=== PATIENT | male | born 1990 | race African-American/Black ===

== ENCOUNTER 2019-04-11 05:57 | Emergency (ER) | payer BC ==
[~2019-04-11] VITALS: Ht 182.9 cm; Wt 65.8 kg
[2019-04-11 06:10] VITALS: BP 137/76
[2019-04-11 06:28] LABS: BILIRUBIN,URINE NEGATIVE (NEG); CLARITY,URINE CLEAR; COLOR,URINE YELLOW; NITRITE,URINE NEGATIVE (NEG); PH,URINE 6.5; PROTEIN,URINE NEGATIVE (NEG-TRACE)
[2019-04-11 07:01] LABS: BACTERIA,URINE 0 /HPF (0-FEW); RBC,URINE 0 /HPF (0-2)
[2019-04-11] MEDS ORDERED: cefTRIAXone IM 250 MG VIAL IM ONE (07:30)
[2019-04-11] MEDS ORDERED: AZITHROMYCIN 250 MG TABLET. PO ONE (07:30)
[2019-04-11] MEDS ORDERED: CIPR500T94 PO (07:43)
--- NOTE | 2019-04-11 07:43 | PHYS DOC ---
Past Medical History Past Medical History: No Pertinent History Past Surgical History: Other Additional Past Surgical Histo: HERNIA REPAIR Alcohol Use: Rarely Drug Use: Marijuana Adult General Chief Complaint Chief Complaint: BACK PAIN - NO INJURY HPI HPI Patient is a 29 year old male who presented to ER today for evaluation of low back pain that been experiencing for the last few years. Patient said the reason he checked in today because he is here with his girlfriend who was seen for urinary tract infection so by convenient he wanted to check in to be seen as well. Patient also says sometimes HE HAD penile discharge but not today. He denies any abdominal pain, no nausea vomiting. Patient denies any bowel incontinence or bladder incontinence. Patient denies any previous back injury. Review of Systems Review of Systems Constitutional: Denies fever or chills [] Eyes: Denies change in visual acuity, redness, or eye pain [] HENT: Denies nasal congestion or sore throat [] Respiratory: Denies cough or shortness of breath [] Cardiovascular: No additional information not addressed in HPI [] GI: Denies abdominal pain, nausea, vomiting, bloody stools or diarrhea [] : Denies dysuria or hematuria [] Musculoskeletal: Positive for back pain, NO joint pain [] Integument: Denies rash or skin lesions [] Neurologic: Denies headache, focal weakness or sensory changes [] Endocrine: Denies polyuria or polydipsia [] All other systems were reviewed and found to be within normal limits, except as documented in this note. Current Medications Current Medications Current Medications Medications (Trade) Dose Ordered Sig/Kourtney Start Time Stop Time Status Last Admin Dose Admin Azithromycin (Zithromax) 1,000 mg 1X ONCE 04/11/19 07:30 04/11/19 07:31 DC 04/11/19 07:26 1,000 MG Ceftriaxone Sodium (Rocephin Im) 250 mg 1X ONCE 04/11/19 07:30 04/11/19 07:31 DC 04/11/19 07:27 250 MG Allergies Allergies Allergies Coded Allergies Type Severity Reaction Last Updated Verified No Known Drug Allergies 04/11/19 No Physical Exam Physical Exam Constitutional: Well developed, well nourished, no acute distress, non-toxic appearance. [] HENT: Normocephalic, atraumatic, bilateral external ears normal, oropharynx moist, no oral exudates, nose normal. [] Eyes: PERRLA, EOMI, conjunctiva normal, no discharge. [] Neck: Normal range of motion, no tenderness, supple, no stridor. [] Cardiovascular:Heart rate regular rhythm, no murmur [] Lungs & Thorax: Bilateral breath sounds clear to auscultation [] Abdomen: Bowel sounds normal, soft, no tenderness, no masses, no pulsatile masses. [] Skin: Warm, dry, no erythema, no rash. [] Back: No tenderness, no CVA tenderness. NO MIDLINE VERTEBRAL TENDERNESS TO PALPATION. Extremities: No tenderness, no cyanosis, no clubbing, ROM intact, no edema. [] Neurologic: Alert and oriented X 3, normal motor function, normal sensory function, no focal deficits noted. [] Psychologic: Affect normal, judgement normal, mood normal. [] Current Patient Data Vital Signs Vital Signs Date Time Temp Pulse Resp B/P (MAP) Pulse Ox O2 Delivery O2 Flow Rate FiO2 04/11/19 06:10 98.6 88 14 137/76 (96) 99 Room Air 98.6 Lab Values Laboratory Tests Test 04/11/19 06:10 Urine Collection Type Unknown Urine Color Yellow Urine Clarity Clear Urine pH 6.5 Urine Specific Samson >=1.030 Urine Protein Negative mg/dL (NEG-TRACE) Urine Glucose (UA) Negative mg/dL (NEG) Urine Ketones (Stick) Negative mg/dL (NEG) Urine Blood Negative (NEG) Urine Nitrite Negative (NEG) Urine Bilirubin Negative (NEG) Urine Urobilinogen Dipstick 1.0 mg/dL (0.2 mg/dL) Urine Leukocyte Esterase Small (NEG) Urine RBC 0 /HPF (0-2) Urine WBC 5-10 /HPF (0-4) Urine Bacteria 0 /HPF (0-FEW) Urine Mucus Mod /LPF EKG EKG [] Radiology/Procedures Radiology/Procedures [][facility] [address] [place] [address] IMAGING REPORT Signed PATIENT: LILY JONES ACCOUNT: [id number] : 1990 LOCATION: ER AGE: 29 SEX: M EXAM STATUS: DEP ER ORD. PHYSICIAN: BRYCE ROBERTSON DO REASON: lower back pain for a year, worse the last few day, no injury PROCEDURE: LUMBAR SPINE MIN 4V Lumbar spine, 5 views, 04/11/2019: HISTORY: Low back pain There are tiny ribs at T12. Utilizing this numbering system L5 is largely sacralized. No recent fracture or subluxation is evident. The intervertebral disc spaces are well-maintained. There is no evidence of spondylolysis. Mild deformity of the lower sacrum near its junction with the coccyx is compatible with old trauma. The paraspinous soft tissues are unremarkable. IMPRESSION: No acute lumbar spine abnormality is detected. Electronically signed by: Jose Mendoza MD (04/11/2019 7:38 AM) [facility] DICTATED and SIGNED BY: JOSE MENDOZA MD DATE: 04/11/19 0738 Course & Med Decision Making Course & Med Decision Making Pertinent Labs and Imaging studies reviewed. (See chart for details) HE was given 250 mg of Rocephin IM, 1 g of ZITHROMAX by mouth for suspect STD. Dragon Disclaimer Dragon Disclaimer This electronic medical record was generated, in whole or in part, using a voice recognition dictation system. Departure Departure Impression: Primary Impression: Back pain Additional Impression: UTI (urinary tract infection) Disposition: HOME, SELF-CARE Condition: STABLE Referrals: NO PCP (PCP) Patient Instructions: Back Pain, Adult, Urinary Tract Infection Scripts Ciprofloxacin Hcl (CIPRO) 500 Mg Tablet 1 TAB PO BID, #14 TAB Prov: BRYCE ROBERTSON DO 04/11/19 Problem Qualifiers BRYCE ROBERTSON DO April 11, 2019 07:43
--- NOTE | 2019-04-11 09:50 | RAD ---
Lumbar spine, 5 views, 04/11/2019: HISTORY: Low back pain There are tiny ribs at T12. Utilizing this numbering system L5 is largely sacralized. No recent fracture or subluxation is evident. The intervertebral disc spaces are well-maintained. There is no evidence of spondylolysis. Mild deformity of the lower sacrum near its junction with the coccyx is compatible with old trauma. The paraspinous soft tissues are unremarkable. IMPRESSION: No acute lumbar spine abnormality is detected. Electronically signed by: Jose Mendoza MD (04/11/2019 7:38 AM) [facility]
== END 2019-04-11 08:02 | disposition home or self-care (01) ==
LOC: ER 05:57
DX: N39.0 Urinary tract infection, site not specified (principal); M54.5 Low back pain
CPT/HCPCS: 72110; 81001; 87086; 96372; 99285; J0696; Q0144; 99284

== ENCOUNTER 2020-08-04 11:27 | Emergency (ER) | payer BC ==
[~2020-08-04] VITALS: Ht 180.3 cm; Wt 70.0 kg
[~2020-08-04 11:27] MED LIST: CIPR500T94 PO
[2020-08-04 11:32] VITALS: BP 152/65
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
--- NOTE | 2020-08-04 12:02 | RAD ---
EXAM: Right forearm, 2 views. HISTORY: Blunt trauma. COMPARISON: None. FINDINGS: 2 views of the right forearm are obtained. There is a slightly comminuted nondisplaced fracture of the distal ulnar diaphysis. There is overlying soft tissue swelling. No additional fracture is seen. IMPRESSION: Slightly comminuted nondisplaced fracture of the distal ulnar diaphysis. Electronically signed by: Kiara Sharpe MD (08/04/2020 11:59 AM) [id number]
[2020-08-04] MEDS ORDERED: HYDR-3164 PO (12:48)
== END 2020-08-04 13:12 | disposition home or self-care (01) ==
LOC: ER 11:27
DX: S52.691A Other fracture of lower end of right ulna, initial encounter for closed fracture (principal); R20.2 Paresthesia of skin; F12.90 Cannabis use, unspecified, uncomplicated; Z98.890 Other specified postprocedural states; W23.0XXA Caught, crushed, jammed, or pinched between moving objects, initial encounter; Y93.89 Activity, other specified; Y92.098 Other place in other non-institutional residence as the place of occurrence of the external cause; Y99.8 Other external cause status
CPT/HCPCS: 29125; 73090; 99283; A4565

== ENCOUNTER 2021-03-20 16:20 | Emergency (ER) | payer BC ==
[~2021-03-20] VITALS: Ht 177.8 cm; Wt 70.0 kg
[~2021-03-20 16:20] MED LIST changes: +HYDR-3164 PO
--- NOTE | 2021-03-20 16:35 | EKG ---
[facility] [address] [place] [address] Test Date: 2021-03-20 Test Time: 16:28:00 Pat Name: LILY JONES Department: Room: Gender: M Data Migration Lead: : 1990 Requested By: SAMMIE MORRIS Order Number: [id number] Reading MD: Measurements Intervals [place] Rate: 93 P: 54 HI: 142 QRS: 66 QRSD: 98 T: 48 QT: 320 QTc: 400 Interpretive Statements SINUS RHYTHM LEFT ATRIAL ABNORMALITY CONSIDER RIGHT VENTRICULAR HYPERTROPHY ST & T ABNORMALITY, CONSIDER RECENT INFERIOR MYOCARDIAL OR PERICARDIAL DAMAGE ABNORMAL ECG RI6.02 No previous ECG available for comparison
--- NOTE | 2021-03-20 16:50 | PHYS DOC ---
Past Medical History Past Medical History: No Pertinent History (ALEXANDRASAMMIE DO) Past Surgical History: Other Additional Past Surgical Histo: HERNIA REPAIR (GALBIJANSAMMIE DO) Smoking Status: Never Smoker Alcohol Use: Rarely Drug Use: Marijuana (ALEXANDRASAMMIE DO) General Adult EDM: Chief Complaint: ALTERED MENTAL STATUS HPI: HPI: 31-year-old male presents to the ED brought in by EMS from work with concern for seizure-like activity. Coworker witnessed patient take a pill. EMS reports patient was shaking and patient was given Versed 5 mg IV push. EMS was concerned for apnea and patient was given 4 mg of IV Narcan. (ALEXANDRASAMMIE DO) Review of Systems: Review of Systems: ROS unable to obtain due to mental status (GALBIJANSAMMIE DO) Heart Score: C/O Chest Pain: N/A Risk Factors: Risk Factors: DM, Current or recent (<one month) smoker, HTN, HLP, family history of CAD, obesity. Risk Scores: Score 0 - 3: 2.5% MACE over next 6 weeks - Discharge Home Score 4 - 6: 20.3% MACE over next 6 weeks - Admit for Clinical Observation Score 7 - 10: 72.7% MACE over next 6 weeks - Early Invasive Strategies (GALBIJANSAMMIE DO) Current Medications: Current Medications Medications (Trade) Dose Ordered Sig/Kourtney Start Time Stop Time Status Last Admin Dose Admin Lorazepam (Ativan Inj) 2 mg STK-MED ONCE 03/20/21 16:39 03/20/21 16:40 DC (ALEXANDRASAMMIE DO) Allergies: Allergies: Allergies Coded Allergies Type Severity Reaction Last Updated Verified No Known Drug Allergies 04/11/19 No (ALEXANDRASAMMIE DO) Physical Exam: PE: Constitutional: E1M4V1 = GCS6 although grimaces and withdrawals from pain/castillo insertion, thin/fit male HENT: Normocephalic, atraumatic, no oral bleeding, loose teeth or tongue lacera tion Eyes: PERRLA (3mm bl), EOMI, conjunctiva normal, no discharge. Neck: Normal range of motion, supple, no midline step offs Cardiovascular: S1/2 present, regular rhythm Lungs & Thorax: Speaking in full sentences, bilateral equal chest rise, no tachypnea or increased work of breathing Abdomen: soft, no tenderness, Skin: Warm, dry, no erythema, no rash. [] Back: No midline tenderness, no CVA tenderness. [] Extremities: No tenderness, no cyanosis, no lower extremity edema Neurologic: Alert and oriented X 3, normal motor function, normal sensory function, no focal deficits noted, pt starts flexing and extended his head in ct hitting his pillow repeatedly with forced eye closure, eye tracking, failed both drop arm test twice in each arm -has voluntary control of all 4 extremities Psychologic: No agitation, resting comfortably, calm (SAMMIE MORRIS DO) EKG: EKG: Sinus rhythm 93 bpm, no axis deviation, normal intervals, no T wave inversions, no ST elevations or ST depressions, small nonpathologic Q waves in lead III and aVF, (SAMMIE MORRIS DO) Radiology/Procedures: Radiology/Procedures: IMAGING REPORT Signed PATIENT: LILY JONES AACCOUNT: [id number] : 1990 LOCATION: ER AGE: 31 SEX: M EXAM STATUS: REG ER ORD. PHYSICIAN: SAMMIE MORRIS DO REASON: seizure like actiivty PROCEDURE: CT HEAD AND CERVICAL SPINE WO EXAM: Head and cervical spine CT without contrast. HISTORY: Seizure-like activity. TECHNIQUE: Computed tomographic images of the head and cervical spine were obtained without contrast. *One or more of the following individualized dose reduction techniques were utilized for this examination: 1. Automated exposure control. 2. Adjustment of the mA and/or kV according to patient size. 3. Use of iterative reconstruction technique. COMPARISON: None. FINDINGS: Head: There is no hemorrhage. There is no mass effect or midline shift. There is no hydrocephalus. The murillo-white matter differentiation pattern is intact. There is no calvarial lesion. The orbits and visualized paranasal sinuses mastoid air cells are unremarkable. Cervical spine: There is cervical kyphosis. There is no significant listhesis. There is degenerative endplate remodeling with disc space narrowing and osteophytosis primarily at C6-C7. There is no fracture. The degenerative changes results in mild left stenosis at C3-C4 and right greater than left foraminal stenosis at C6-C7. IMPRESSION: 1. No acute intracranial finding or evidence of acute cervical spine trauma. 2. Degenerative change involving the cervical spine, primarily at C6-C7. This is associated with moderate right greater than left foraminal stenosis at this level. Electronically signed by: Kiara Durand MD (03/20/2021 4:55 PM) [id number] DICTATED and SIGNED BY: KIARA DURAND MD DATE: 03/20/21 [id number] ([facility],SAMMIE Winslow DO) Course & Med Decision Making: Course & Med Decision Making Pertinent Labs and Imaging studies reviewed. (See chart for details) On reevaluation patient alert and oriented (GCS15) with mother of his child at bedside-he consents to her knowledge of medical information. Patient with no underlying psych history. States he took 4 tablets of a blue-pink pill that was a "headache medicine." Denies any suicidal ideations/thoughts. Unremarkable labs with negative drug screen, normal LFTs. 4 hour tylenol level is pending at 810. Due to shift change patient was signed out to Dr. Maza for further medical evaluation disposition. Will discharge home with strict ED return precautions were given for head injury, syncope, neurologic deficits, nausea or vomiting. Encouraged urgent outpatient follow-up with PMD and neurology for outpatient definitive management. Life-threatening processes were considered but are low suspicion at this time, given history, physical exam and ED workup. Pt was educated on all prescription medications and adverse effects. All patient's questions were answered and pt was stable at time of discharge. Life/limb-threatening differential includes but is not limited to, end organ damage/sepsis, trauma/abuse/neglect, neurologic deficit, alcohol/drug ingestion, toxidrome, suicidal/homicidal ideations plans or attempts, psychosis or mental illness resulting in self neglect and inability to care for self. I spoken with the patient and her caregivers. I explained the patient's condition, diagnoses and treatment plan based on the information available to me at this time. I have answered the patient and her caregiver's questions and addressed any concerns. The patient and her caregivers have a good understanding of patient's diagnosis, condition and treatment plan as can be expected at this point. Vital signs have been stable. Patient's condition is stable and appropriate for discharge from the emergency department. Patient will pursue further outpatient evaluation with primary care physician or other designated or consulting physician as outlined in the discharge instructions. The patient and/or caregivers are agreeable to this plan of care and follow-up instructions have been explained in detail. The patient and/or caregivers have received these instructions in written form and have expressed an understanding of the discharge instructions. The patient and/or caregivers are aware that any significant change of condition or worsening of symptoms should prompt immediate return to this or the closest emergency department or call to 911. (SAMMIE MORRIS DO) Course & Med Decision Making Assumed care of patient at check out from Dr. Morris. At check out, 4-hour Tylenol level and salicylate were pending and patient is stable. At this time, lab work is unremarkable. Patient is feeling much better. He would like to go home. Patient's test results and vitals while in the ED were fully reviewed and discussed with the patient. Patient is stable and at this time does not need admission to the hospital. We have discussed strict return precautions and the importance of following up with their Primary Care Physician. Patient stated understanding and was given an opportunity to ask any questions. Patient is in agreement with plan. (BHAVESH MAZA MD) Alexaon Disclaimer: Christina Disclaimer: This electronic medical record was generated, in whole or in part, using a voice recognition dictation system. (SAMMIE MORRIS DO) Departure Departure Impression: Primary Impression: Pseudoseizures Disposition: 06 HOME HEALTH CARE SERVICE Condition: STABLE Referrals: UNKNOWN PCP NAME (PCP) Follow-up with your primary care physician in 24 to 48 hours or FOLLOW UP WITH FAMILY MEDICINE: Family Medicine Address: [address] [facility] [address] [facility] [address] [place] [address] Phone: [phone] Patient Instructions: Nonepileptic Seizures Additional Instructions: FOLLOW UP WITH NEUROLOGY: For outpatient definitive management [facility] Address: [address], [facility] [address] [place] [address] EMERGENCY DEPARTMENT GENERAL DISCHARGE INSTRUCTIONS Thank you for coming to [facility] Emergency Department (ED) today and trusting us with you care. We trust that you had a positive experience in our Emergency Department. If you wish to speak to the department management, you may call the Director at [phone]. YOUR FOLLOW UP INSTRUCTIONS ARE FOLLOWS: 1. Do you have a private Doctor? If you do not have a private doctor, please ask for a resource list of physicians or clinics that may be able to assist you with follow up care. 2. The Emergency Physicain has interpreted your x-rays. The X-Ray specialist will also review them. If there is a change in the findings, you will be notified in 48 hours when at all possible. 3. A lab test or culture has been done, your results will be reviewed and you will be notified if you need a change in treatment. ADDITIONAL INSTRUCTIONS AND INFORMATION: 1. Your care today has been supervised by a physician who is specially trained in emergency care. Many problems require more than one evaluation for a complete diagnosis and treatment. We recommend that you schedule your follow up appointment as recommended to ensure complete treatment of you illness or injury. If you are unable to obtain follow up care and continue to have a problem, or if your condition worsens, we recommend that you return to the ED. 2. We are not able to safely determine your condition over the phone nor are we able to give sound medical advice over the phone. For these safety reasons, if you call for medical advice we will ask you to come to the ED for further evaluation. 3. If you have any questions regarding these discharge instructions please call the ED at [phone]. SAFETY INFORMATION: In the interest of safety, wellness, and injury prevention; we encourage you to wear your sealbelt, if you smoke; quite smoking, and we encourage family to use a protective helmet for bicycling and other sporting events that present an increased risk for head injury. IF YOUR SYMPTOMS WORSEN OR NEW SYMPTOMS DEVELOP, OR YOU HAVE CONCERNS ABOUT YOUR CONDITION; OR IF YOUR CONDITION WORSENS WHILE YOU ARE WAITING FOR YOUR FOLLOW UP APPOINTMENT; EITHER CONTACT YOUR PRIMARY CARE DOCTOR, THE PHYSICIAN WHOSE NAME AND NUMBER YOU WERE GIVEN, OR RETURN TO THE ED IMMEDIATELY. SAMMIE MORRIS DO Mar 20, 2021 16:50 BHAVESH MAZA MD Mar 21, 2021 01:05
[2021-03-20 16:55] LABS: BASO % 0 % (0-3); EOS # 0.1 x10^3/uL (0.0-0.7); EOS % 1 % (0-3); HEMATOCRIT 41.9 % (39.0-53.0); HEMOGLOBIN 13.3 g/dL (13.0-17.5); LYMPH # 3.4 x10^3/uL (1.0-4.8); LYMPH % 37 % (24-48); MEAN CORPUSCULAR HEMOGLOBIN 23 pg (25-35); MEAN CORPUSCULAR HGB CONC 32 g/dL (31-37); MEAN CORPUSCULAR VOLUME 73 fL (79-100); MONO # 0.5 x10^3/uL (0.0-1.1); MONO % 6 % (0-9); NEUT # 5.2 x10^3/uL (1.8-7.7); NEUT % 57 % (31-73); PLATELET COUNT 159 x10^3/uL (140-400); RED BLOOD COUNT 5.74 x10^6/uL (4.30-5.70); RED CELL DISTRIBUTION WIDTH 14.3 % (11.5-14.5); WHITE BLOOD COUNT 9.1 x10^3/uL (4.0-11.0)
[2021-03-20 16:58] LABS: BARBITURATES NEG (NEG); BENZODIAZEPINES NEG (NEG); CANNABINOIDS NEG (NEG); COCAINE NEG (NEG); METHADONE NEG (NEG); OPIATES NEG (NEG); PHENCYCLIDINE NEG (NEG)
--- NOTE | 2021-03-20 16:58 | RAD ---
EXAM: Head and cervical spine CT without contrast. HISTORY: Seizure-like activity. TECHNIQUE: Computed tomographic images of the head and cervical spine were obtained without contrast. *One or more of the following individualized dose reduction techniques were utilized for this examina tion: 1. Automated exposure control. 2. Adjustment of the mA and/or kV according to patient size. 3. Use of iterative reconstruction technique. COMPARISON: None. FINDINGS: Head: There is no hemorrhage. There is no mass effect or midline shift. There is no hydrocephalus. Th e murillo-white matter differentiation pattern is intact. There is no calvarial lesion. The orbits and v isualized paranasal sinuses mastoid air cells are unremarkable. Cervical spine: There is cervical kyphosis. There is no significant listhesis. There is degenerative endplate remodeling with disc space narrowing and osteophytosis primarily at C6-C7. There is no fract ure. The degenerative changes results in mild left stenosis at C3-C4 and right greater than left fora joe stenosis at C6-C7. IMPRESSION: 1. No acute intracranial finding or evidence of acute cervical spine trauma. 2. Degenerative change involving the cervical spine, primarily at C6-C7. This is associated with mode rate right greater than left foraminal stenosis at this level. Electronically signed by: Kiara Sharpe MD (03/20/2021 4:55 PM) [id number]
[2021-03-20 17:02] LABS: PROTHROMBIN TIME PATIENT 14.7 SEC (11.7-14.0)
[2021-03-20 17:08] LABS: AMPHETAMINE/METHAMPHETAMINE NEG (NEG)
[2021-03-20 17:12] LABS: CALCIUM 8.7 mg/dL (8.5-10.1); CREATININE 1.3 mg/dL (0.7-1.3); GFR 77.9; POTASSIUM 3.9 mmol/L (3.5-5.1)
[2021-03-20 17:17] LABS: ALBUMIN 4.1 g/dL (3.4-5.0); ALBUMIN/GLOBULIN RATIO 1.4 (1.0-1.7); MAGNESIUM 1.9 mg/dL (1.8-2.4); TOTAL BILIRUBIN 0.6 mg/dL (0.2-1.0); TOTAL PROTEIN 7.1 g/dL (6.4-8.2)
[2021-03-20 19:04] LABS: SALIC 4.3 mg/dL (2.8-20.0)
[2021-03-20 20:52] LABS: ACETAMIN < 2 mcg/ml (10-30)
[2021-03-20 21:06] VITALS: BP 119/69
== END 2021-03-20 21:22 | disposition home health service (06) ==
LOC: ER 16:20
DX: R56.9 Unspecified convulsions (principal)
CPT/HCPCS: 36415; 70450; 72125; 80053; 80307; 80329; 82550; 83735; 84484; 85025; 85610; 85730; 93005; 99285-25; G0480

== ENCOUNTER 2021-03-23 16:19 | Emergency (ER) | payer BC ==
[~2021-03-23] VITALS: Ht 182.9 cm; Wt 77.0 kg
[2021-03-23] MEDS ORDERED: IV NORMAL SALINE 1000ML BAG 1,000 ML IV ONE (18:00)
[2021-03-23] MEDS ORDERED: IV NORMAL SALINE 1000ML BAG 1,000 ML IV SCH (18:00)
[2021-03-23 18:16] LABS: BILIRUBIN,URINE SMALL (NEG); CLARITY,URINE CLOUDY; NITRITE,URINE POSITIVE (NEG); PROTEIN,URINE 100 mg/dL (NEG-TRACE); UROBILINOGEN,URINE 0.2 mg/dL (0.2 mg/dL)
--- NOTE | 2021-03-23 18:17 | PHYS DOC ---
Past Medical History Past Medical History: No Pertinent History (YASIR GRAHAM SEA SHELL GATHERER) Past Surgical History: Other Additional Past Surgical Histo: HERNIA REPAIR (YASIR GRAHAM SEA SHELL GATHERER) Smoking Status: Never Smoker Alcohol Use: Rarely Drug Use: Marijuana (YASIR GRAAHM SEA SHELL GATHERER) General Adult EDM: Chief Complaint: FLANK PAIN HPI: HPI: Patient is a 31 year old male who presents with his states since the March 20 he has had burning with urination and bilateral side pain almost to the flank area. States is an aching type pain. He is febrile upon arrival to the ED. He denies nausea, vomiting, diarrhea, chest pain, shortness of breath, cough, headache, fever. Patient rates his pain a 7 out of 10. (YASIR GRAHAM SEA SHELL GATHERER) Review of Systems: Review of Systems: Constitutional: Denies fever or chills. [] Eyes: Denies change in visual acuity. [] HENT: Denies nasal congestion or sore throat. [] Respiratory: Denies cough or shortness of breath. [] Cardiovascular: Denies chest pain or edema. [] GI: +Bilateral lower sides abdominal pain, denies nausea, vomiting, bloody stools or diarrhea. [] : +dysuria. [] Musculoskeletal: Denies back pain or joint pain. [] Integument: Denies rash. [] Neurologic: Denies headache, focal weakness or sensory changes. [] Endocrine: Denies polyuria or polydipsia. [] Lymphatic: Denies swollen glands. [] Psychiatric: Denies depression or anxiety. [] (YASIR GRAHAM SEA SHELL GATHERER) Heart Score: C/O Chest Pain: No Risk Factors: Risk Factors: DM, Current or recent (<one month) smoker, HTN, HLP, family history of CAD, obesity. Risk Scores: Score 0 - 3: 2.5% MACE over next 6 weeks - Discharge Home Score 4 - 6: 20.3% MACE over next 6 weeks - Admit for Clinical Observation Score 7 - 10: 72.7% MACE over next 6 weeks - Early Invasive Strategies (YASIR GRAHAM SEA SHELL GATHERER) Current Medications: Current Medications Medications (Trade) Dose Ordered Sig/Kourtney Start Time Stop Time Status Last Admin Dose Admin Sodium Chloride 1,000 ml @ 1,000 mls/hr 1X ONCE 5/2/21 18:00 03/23/21 18:59 (YASIR GRAHAM APRN) Allergies: Allergies: Allergies Coded Allergies Type Severity Reaction Last Updated Verified No Known Drug Allergies 04/11/19 No (YASIR GRAHAM APRN) Physical Exam: PE: Constitutional: Well developed, well nourished, no acute distress, non-toxic appearance. [] HENT: Normocephalic, atraumatic, bilateral external ears normal, oropharynx moist, no oral exudates, nose normal. [] Eyes: PERRLA, EOMI, conjunctiva normal, no discharge. [] Neck: Normal range of motion, no tenderness, supple, no stridor. [] Cardiovascular:Heart rate regular rhythm, no murmur [] Lungs & Thorax: Bilateral breath sounds clear to auscultation [] Abdomen: Bowel sounds normal, soft, no tenderness, no masses, no pulsatile masses. [] Skin: Warm, dry, no erythema, no rash. [] Back: No tenderness, no CVA tenderness. [] Extremities: No tenderness, no cyanosis, no clubbing, ROM intact, no edema. [] Neurologic: Alert and oriented X 3, normal motor function, normal sensory function, no focal deficits noted. [] Psychologic: Affect normal, judgement normal, mood normal. Normal physical exam [] (YASIR GRAHAM APRN) Current Patient Data: Vital Signs: Vital Signs Date Time Temp Pulse Resp B/P (MAP) Pulse Ox O2 Delivery O2 Flow Rate FiO2 03/23/21 17:37 101.3 120 20 119/69 (86) 98 Room Air 101.3 (YASIR GRAHAM APRN) EKG: EKG: [] (YASIR GRAHAM APRN) Radiology/Procedures: Radiology/Procedures: [] Impression: [facility] [address] [place] [address] IMAGING REPORT Signed PATIENT: LILY JONES AACCOUNT: [id number] : 1990 LOCATION: ER AGE: 31 SEX: M EXAM STATUS: REG ER ORD. PHYSICIAN: YASIR GRAHAM APRN REASON: abd pain, fever, OMNI 300, 75 ML IV PROCEDURE: CT ABD PELV W/ IV CONTRST ONLY Exam: CT of abdomen and pelvis with contrast INDICATION: Abdominal pain, fever TECHNIQUE: Sequential axial images through the abdomen and pelvis obtained following the administration of 75 mL of Omni 300 IV contrast. Sagittal and coronal reformatted images were reconstructed from the axial data and reviewed. Exposure: One or more of the following in the visualized dose reduction techniques were utilized for this examination: 1. Automated exposure control 2. Adjustment of the MA and/or KV according to patient size 3. Use of iterative of reconstructive technique Comparisons: None FINDINGS: Heart size is normal. No pericardial effusion. Visualized lung bases are clear. No pleural effusion. Liver, spleen, pancreas, gallbladder and adrenals are unremarkable. No perinephric inflammation or hydronephrosis. No renal or ureteral calculi are identified. Bladder is partially distended with diffuse wall thickening. Prostate is not enlarged. Large and small bowel are unremarkable. Appendix is is normal. No free intra- abdominal air or fluid. No obstruction. Abdominal aorta has a normal course and caliber. Abdominal vasculature is patent. No enlarged abdominal lymph nodes are identified. No suspicious osseous lesions or acute fractures. IMPRESSION: No acute process identified within the abdomen or pelvis. Electronically signed by: Jeison Cisneros MD (03/23/2021 7:16 PM) [facility] DICTATED and SIGNED BY: JEISON CISNEROS MD DATE: 03/23/21 [id number] 0 (YASIR GRAHAM APRN) Course & Med Decision Making: Course & Med Decision Making Pertinent Labs and Imaging studies reviewed. (See chart for details) See HPI. Patient denies any penile discharge or concerns for sexually transmitted disease. He states that he was here last month for seizure activity and had had a Dodge catheter in but it was taken out on the . He states since then he has basically had the symptoms. Alert and oriented x4. Ambulatory with a steady gait. Skin pink warm and dry. Speaks in full clear sentences. Abdomen is soft and nontender. Patient states when I press on his abdomen he just feels pressure. No CVA tenderness. Blood work is unremarkable. Urinalysis shows a infection with nitrites and some dehydration. He is given 2 L of normal saline, Rocephin 1 g and azithromycin 1 g in the ED. Lactic acid is normal. Patient is nontoxic appearing. I will send the patient home on ciprofloxacin. [] (YASIR GRAHAM APRN) Course & Med Decision Making I oversaw on the above date of service of this patient and discussed the care with the ASSOCIATE PROFESSOR [employer]OMATION. I agree with the findings, plan of care, and disposition as documented. Electronically signed, Mitali Castillo DO (MITALI CASTILLO DO) Christina Disclaimer: Christina Disclaimer: This electronic medical record was generated, in whole or in part, using a voice recognition dictation system. (YASIR GRAHAM APRN) Departure Departure Impression: Primary Impression: Urinary tract infection Qualified Codes: N39.0 - Urinary tract infection, site not specified; R31.9 - Hematuria, unspecified Disposition: 01 HOME / SELF CARE / HOMELESS Condition: STABLE Referrals: UNKNOWN PCP NAME (PCP) Patient Instructions: Urinary Tract Infection Additional Instructions: Follow up with [facility] if needed. Take medication as prescribed and with food. Drink plenty of water. If symptoms worsen you can return to this ED or go to a hospital with urology. Scripts Ibuprofen (IBUPROFEN) 600 Mg Tablet 600 MG PO PRN Q6HRS PRN for INFLAMMATION, #30 TAB Prov: YASIR GRAHAM APRN 03/23/21 Ondansetron (ONDANSETRON ODT) 4 Mg Tab.rapdis 1 TAB PO PRN Q6-8HRS, #16 TAB Prov: YASIR GRAHAM APRN 03/23/21 Ciprofloxacin Hcl (CIPRO) 500 Mg Tablet 1 TAB PO BID for 10 Days, #20 TAB 0 Refills Prov: YASIR GRAHAM APRN 03/23/21 YASIR GRAHAM APRN March 23, 2021 18:17 MITALI CASTILLO DO March 26, 2021 18:46
[2021-03-23 18:18] LABS: BASO # 0.1 x10^3/uL (0.0-0.2); BASO % 1 % (0-3); EOS # 0.1 x10^3/uL (0.0-0.7); EOS % 1 % (0-3); HEMATOCRIT 42.8 % (39.0-53.0); HEMOGLOBIN 13.8 g/dL (13.0-17.5); LYMPH # 2.5 x10^3/uL (1.0-4.8); LYMPH % 23 % (24-48); MEAN CORPUSCULAR HEMOGLOBIN 23 pg (25-35); MEAN CORPUSCULAR HGB CONC 32 g/dL (31-37); MEAN CORPUSCULAR VOLUME 72 fL (79-100); MONO # 0.8 x10^3/uL (0.0-1.1); MONO % 8 % (0-9); NEUT # 7.5 x10^3/uL (1.8-7.7); NEUT % 68 % (31-73); PLATELET COUNT 182 x10^3/uL (140-400); RED BLOOD COUNT 5.92 x10^6/uL (4.30-5.70); RED CELL DISTRIBUTION WIDTH 14.2 % (11.5-14.5); WHITE BLOOD COUNT 10.9 x10^3/uL (4.0-11.0)
[2021-03-23 18:24] LABS: COLOR,URINE AMBER
[2021-03-23 18:30] LABS: CALCIUM 8.9 mg/dL (8.5-10.1); CREATININE 1.4 mg/dL (0.7-1.3); GFR 71.5; POTASSIUM 3.6 mmol/L (3.5-5.1)
[2021-03-23 18:30] LABS: BACTERIA,URINE MANY /HPF (0-FEW); RBC,URINE TNTC /HPF (0-2); WBC,URINE TNTC /HPF (0-4)
[2021-03-23 18:45] LABS: ALBUMIN/GLOBULIN RATIO 1.2 (1.0-1.7); TOTAL BILIRUBIN 0.8 mg/dL (0.2-1.0); TOTAL PROTEIN 7.3 g/dL (6.4-8.2)
[2021-03-23] MEDS ORDERED: CONTRAST GIVEN. MC PRN (19:00)
[2021-03-23] MEDS ORDERED: AZITHROMYCIN 250 MG TABLET. PO ONE (19:00)
[2021-03-23] MEDS ORDERED: cefTRIAXone IV Push 1 GM VIAL. IVP ONE (19:00)
[2021-03-23] MEDS ORDERED: IOHEXOL 300 MG/ML 100ML VIAL. IV ONE (19:00)
--- NOTE | 2021-03-23 19:18 | RAD ---
Exam: CT of abdomen and pelvis with contrast INDICATION: Abdominal pain, fever TECHNIQUE: Sequential axial images through the abdomen and pelvis obtained following the administrati on of 75 mL of Omni 300 IV contrast. Sagittal and coronal reformatted images were reconstructed from the axial data and reviewed. Exposure: One or more of the following in the visualized dose reduction techniques were utilized for this examination: 1. Automated exposure control 2. Adjustment of the MA and/or KV according to patient size 3. Use of iterative of reconstructive technique Comparisons: None FINDINGS: Heart size is normal. No pericardial effusion. Visualized lung bases are clear. No pleural effusion. Liver, spleen, pancreas, gallbladder and adrenals are unremarkable. No perinephric inflammation or hydronephrosis. No renal or ureteral calculi are identified. Bladder is partially distended with diffuse wall thickening. Prostate is not enlarged. Large and small bowel are unremarkable. Appendix is is normal. No free intra-abdominal air or fluid. No obstruction. Abdominal aorta has a normal course and caliber. Abdominal vasculature is patent. No enlarged abdominal lymph nodes are identified. No suspicious osseous lesions or acute fractures. IMPRESSION: No acute process identified within the abdomen or pelvis. Electronically signed by: Jeison Mariano MD (03/23/2021 7:16 PM) [facility]
[2021-03-23] MEDS ORDERED: CIPR500T94 PO (19:34)
[2021-03-23] MEDS ORDERED: IBUP-1007 PO (19:35)
[2021-03-23] MEDS ORDERED: ONDA4TAB12 PO (19:35)
[2021-03-23 20:45] VITALS: BP 128/79
== END 2021-03-23 20:45 | disposition home or self-care (01) ==
LOC: ER 16:19
DX: N39.0 Urinary tract infection, site not specified (principal); R31.9 Hematuria, unspecified
CPT/HCPCS: 36415; 74177; 80053; 81001; 83605; 83690; 85025; 87086; 87491; 87591; 96361; 96374; 99285; J0696; J7030; Q9967

== ENCOUNTER 2021-12-04 12:52 | Emergency (ER) | payer BC ==
[~2021-12-04] VITALS: Ht 180.3 cm; Wt 76.6 kg
[~2021-12-04 12:52] MED LIST changes: +IBUP-1007 PO; +ONDA4TAB12 PO
[2021-12-04] MEDS ORDERED: IV NORMAL SALINE 1000ML BAG 1,000 ML IV SCH (14:00)
[2021-12-04] MEDS ORDERED: KETOROLAC 30 MG/ML VIAL. IVP ONE (14:00)
[2021-12-04] MEDS ORDERED: fentaNYL PF VIAL 100 MCG/2 ML VIAL IVP ONE (14:00)
[2021-12-04 14:13] LABS: BILIRUBIN,URINE NEGATIVE (NEG); CLARITY,URINE CLEAR; COLOR,URINE YELLOW; NITRITE,URINE NEGATIVE (NEG); PROTEIN,URINE NEGATIVE (NEG-TRACE)
--- NOTE | 2021-12-04 14:14 | PHYS DOC ---
Past Medical History Past Medical History: No Pertinent History Past Surgical History: Other Additional Past Surgical Histo: HERNIA Smoking Status: Never Smoker Alcohol Use: None Drug Use: Marijuana General Adult EDM: Chief Complaint: FLANK PAIN HPI: HPI: Patient is a 31 year old male who presents with early this morning he awoke with left flank pain that does at times wraparound to his left lower abdomen. He states that sharp and shooting in nature. He states he feels he gets moving. He denies blood in his urine, pain with urination or difficulty urinating. He denies nausea or vomiting, fever, chest pain, cough, shortness of air, dizziness, or headache. Patient rates his pain 9 out of 10. Review of Systems: Review of Systems: Constitutional: Denies fever or chills. [] Eyes: Denies change in visual acuity. [] HENT: Denies nasal congestion or sore throat. [] Respiratory: Denies cough or shortness of breath. [] Cardiovascular: Denies chest pain or edema. [] GI: + Left lower abdominal pain, denies nausea, vomiting, bloody stools or diarrhea. [] : Denies dysuria. [] Musculoskeletal: + Left flank back pain or denies joint pain. [] Integument: Denies rash. [] Neurologic: Denies headache, focal weakness or sensory changes. [] Endocrine: Denies polyuria or polydipsia. [] Lymphatic: Denies swollen glands. [] Psychiatric: Denies depression or anxiety. [] Heart Score: C/O Chest Pain: No Current Medications: Current Medications Medications (Trade) Dose Ordered Sig/[facility] Start Time Stop Time Status Last Admin Dose Admin Fentanyl Citrate (Fentanyl 2ml Vial) 50 mcg 1X ONCE 12/04/21 14:00 12/04/21 14:01 DC Ketorolac Tromethamine (Toradol 30mg Vial) 30 mg 1X ONCE 12/04/21 14:00 12/04/21 14:01 DC Sodium Chloride 1,000 ml @ 1,000 mls/hr Q1H 12/04/21 14:00 12/04/21 14:59 Allergies: Allergies: Allergies Coded Allergies Type Severity Reaction Last Updated Verified No Known Drug Allergies 12/04/21 No Physical Exam: PE: Constitutional: Well developed, well nourished, no acute distress, non-toxic dayanara earance. [] HENT: Normocephalic, atraumatic, bilateral external ears normal, oropharynx moist, no oral exudates, nose normal. [] Eyes: PERRLA, EOMI, conjunctiva normal, no discharge. [] Neck: Normal range of motion, no tenderness, supple, no stridor. [] Cardiovascular:Heart rate regular rhythm, no murmur [] Lungs & Thorax: Bilateral breath sounds clear to auscultation [] Abdomen: Bowel sounds normal, soft, left lower tenderness, no masses, no pulsatile masses. [] Skin: Warm, dry, no erythema, no rash. [] Back: No tenderness, left CVA tenderness. [] Extremities: No tenderness, no cyanosis, no clubbing, ROM intact, no edema. [] Neurologic: Alert and oriented X 3, normal motor function, normal sensory function, no focal deficits noted. [] Psychologic: Affect normal, judgement normal, mood normal. [] Current Patient Data: Vital Signs: Vital Signs Date Time Temp Pulse Resp B/P (MAP) Pulse Ox O2 Delivery O2 Flow Rate FiO2 12/04/21 13:29 98.1 86 16 116/56 (76) 99 Room Air 98.1 EKG: EKG: [] Radiology/Procedures: Radiology/Procedures: [] Impression: [facility] [address] [place], [place] [id number] IMAGING REPORT Signed PATIENT: LILY JONES AACCOUNT: [id number] : 1990 LOCATION: ER AGE: 31 SEX: M EXAM STATUS: REG ER ORD. PHYSICIAN: YASIR GRAHAM APRN REASON: LEFT FLANK PAIN THAT WRAPS AROUND TO ABDOMEN PROCEDURE: CT ABDOMEN PELVIS WO CONTRAST CT ABDOMEN+PELVIS WO INDICATION: Reason: LEFT FLANK PAIN THAT WRAPS AROUND TO ABDOMEN / Spl. Instructions: / History: EXAM: Noncontrast CT of the abdomen and pelvis. Coronal and sagittal reformatted images were performed. PQRS compliance statement: One or more of the following individualized dose reduction techniques were utilized for this examination: 1. Automated exposure control 2. Adjustment of the mA and/or kV according to patient size 3. Use of iterative reconstruction technique COMPARISON: 03/23/2021 FINDINGS: No free air, free fluid, or fluid collection. Lower chest: The visualized lower lungs are aerated. No pleural or pericardial effusion. ABDOMEN: Liver: The noncontrast liver is homogeneous in attenuation. Gallbladder and biliary: Normal gallbladder without radiopaque stone. Normal caliber bile ducts. Spleen: Normal spleen. Pancreas: The noncontrast pancreas is homogeneous in attenuation without peripancreatic inflammatory changes. Adrenal glands: Normal adrenal glands. Kidneys and ureters: No opaque urinary calculi. Normal kidneys and ureters. GI tract: The stomach is decompressed and poorly evaluated. Normal caliber small bowel and colon. Appendix is not seen. Vascular structures: Normal caliber abdominal aorta. Lymph nodes: No lymphadenopathy in the abdomen or pelvis. PELVIS: Genitourinary system: Normal bladder. SKELETAL STRUCTURES AND SOFT TISSUES: No fracture or destructive lesion in the visualized skeleton. IMPRESSION: No acute findings. No hydronephrosis or opaque urinary calculi. Electronically signed by: Kristian Morales MD (12/04/2021 2:55 PM) [id number] DICTATED and SIGNED BY: KRISTIAN MORALES MD DATE: 12/04/21 [id number] 0 Course & Med Decision Making: Course & Med Decision Making Pertinent Labs and Imaging studies reviewed. (See chart for details) See HPI. Alert and oriented x4. Ambulatory steady gait. Speaks in full clear sentences. Left CVA tenderness. Left lower abdomen tenderness in abdomen otherwise soft and nontender. Skin pink warm and dry. Afebrile. [] Christina Disclaimer: Christina Disclaimer: This electronic medical record was generated, in whole or in part, using a voice recognition dictation system. Departure Departure Impression: Primary Impression: Flank pain Disposition: HOME / SELF CARE / HOMELESS Condition: STABLE Referrals: UNKNOWN PCP NAME (PCP) Patient Instructions: Flank Pain Additional Instructions: Follow-up with primary care provider. Take medication as prescribed and with food. Drink plenty of fluids. Remember these medications can make you sleepy so do not drive or drink any alcohol top of them. Scripts Ibuprofen (IBUPROFEN) 600 Mg Tablet 600 MG PO PRN Q6HRS PRN for INFLAMMATION, #30 TAB Prov: YASIR GRAHAM RACQUET MAKER 12/04/21 Cyclobenzaprine Hcl (CYCLOBENZAPRINE HCL) 10 Mg Tablet 1 TAB PO TID, #15 TAB Prov: YASIR GRAHAM APRN 12/04/21 YASIR GRAHAM APRN Dec 04, 2021 14:14
[2021-12-04 14:28] LABS: BASO % 1 % (0-3); EOS % 1 % (0-3); HEMATOCRIT 42.7 % (39.0-53.0); HEMOGLOBIN 13.6 g/dL (13.0-17.5); LYMPH # 2.6 x10^3/uL (1.0-4.8); LYMPH % 43 % (24-48); MEAN CORPUSCULAR HEMOGLOBIN 23 pg (25-35); MEAN CORPUSCULAR HGB CONC 32 g/dL (31-37); MEAN CORPUSCULAR VOLUME 73 fL (79-100); MONO # 0.4 x10^3/uL (0.0-1.1); MONO % 6 % (0-9); NEUT % 49 % (31-73); PLATELET COUNT 196 x10^3/uL (140-400); RED BLOOD COUNT 5.83 x10^6/uL (4.30-5.70); RED CELL DISTRIBUTION WIDTH 15.3 % (11.5-14.5)
[2021-12-04 14:28] LABS: BACTERIA,URINE 0 /HPF (0-FEW); RBC,URINE 0 /HPF (0-2); WBC,URINE 0 /HPF (0-4)
[2021-12-04 14:42] LABS: CALCIUM 8.6 mg/dL (8.5-10.1); GFR 105.5
[2021-12-04 14:48] LABS: ALBUMIN 3.4 g/dL (3.4-5.0); ALBUMIN/GLOBULIN RATIO 0.8 (1.0-1.7); TOTAL BILIRUBIN 0.4 mg/dL (0.2-1.0); TOTAL PROTEIN 7.5 g/dL (6.4-8.2)
--- NOTE | 2021-12-04 14:57 | RAD ---
CT ABDOMEN+PELVIS WO INDICATION: Reason: LEFT FLANK PAIN THAT WRAPS AROUND TO ABDOMEN / Spl. Instructions: / History: EXAM: Noncontrast CT of the abdomen and pelvis. Coronal and sagittal reformatted images were perform ed. PQRS compliance statement: One or more of the following individualized dose reduction techniques were utilized for this examinat ion: 1. Automated exposure control 2. Adjustment of the mA and/or kV according to patient size 3. Use of iterative reconstruction technique COMPARISON: 03/23/2021 FINDINGS: No free air, free fluid, or fluid collection. Lower chest: The visualized lower lungs are aerated. No pleural or pericardial effusion. ABDOMEN: Liver: The noncontrast liver is homogeneous in attenuation. Gallbladder and biliary: Normal gallbladder without radiopaque stone. Normal caliber bile ducts. Spleen: Normal spleen. Pancreas: The noncontrast pancreas is homogeneous in attenuation without peripancreatic inflammatory changes. Adrenal glands: Normal adrenal glands. Kidneys and ureters: No opaque urinary calculi. Normal kidneys and ureters. GI tract: The stomach is decompressed and poorly evaluated. Normal caliber small bowel and colon. Tomi endix is not seen. Vascular structures: Normal caliber abdominal aorta. Lymph nodes: No lymphadenopathy in the abdomen or pelvis. PELVIS: Genitourinary system: Normal bladder. SKELETAL STRUCTURES AND SOFT TISSUES: No fracture or destructive lesion in the visualized skeleton. IMPRESSION: No acute findings. No hydronephrosis or opaque urinary calculi. Electronically signed by: Remi Smith MD (12/04/2021 2:55 PM) [id number]
[2021-12-04] MEDS ORDERED: CYCL10TA19 PO (15:07)
[2021-12-04] MEDS ORDERED: IBUP-1007 PO (15:07)
[2021-12-04 15:10] VITALS: BP 115/67
[2021-12-04] MEDS ORDERED: CYCLOBENZAPRINE 10 MG TABLET. PO ONE (15:30)
== END 2021-12-04 15:38 | disposition home or self-care (01) ==
LOC: ER 12:52
DX: R10.32 Left lower quadrant pain (principal); R30.0 Dysuria
CPT/HCPCS: 36415; 74176; 80053; 81001; 85025; 96361; 96374; 96375; 99284; J1885; J3010; J7030